=== PATIENT | female | born 1995 | race Caucasian/White ===

== ENCOUNTER 2019-01-01 11:46 | Emergency (ER) | payer SELFPAY ==
[2019-01-01] VITALS (7 sets, daily range): BP systolic 101–129; BP diastolic 61–78; PULSE 68–119; RESP 16–25; TEMP 36.6; O2SAT 99–100; BMI 20.5
--- NOTE | 2019-01-01 11:48 | CT_ITS ---
STUDY: CT CHEST WITHOUT CONTRAST REASON FOR EXAM: Female, 23 years old. SWALLOWED FISH BONE 4 DAYS AGO FEELS LIKE STUCK IN THROAT AROUND STERNAL NOTCH. RADIATION DOSAGE (If Supplied By Facility): CTDIvol = ( 6.37 ) mGy, DLP = ( 262.53 ) mGycm TECHNIQUE: Transaxial imaging was performed without the administration of intravenous contrast material. Individualized dose optimization techniques were used for this CT. COMPARISON: None. FINDINGS: The lungs are normal. There is no demonstrated pleural abnormality. Normal heart and pericardium. Normal mediastinum. Normal hilar regions. Normal unenhanced pulmonary arteries. Normal aorta arch and descending thoracic aorta. Normal osseous structures. There is no demonstrated abnormality of the visualized upper abdomen. CT/Chest without Contrast IMPRESSION: Normal unenhanced CT Chest examination. Electronically Signed: Suri Ceron MD at 12:16 EDT Tel , Service support ,
--- NOTE | 2019-01-01 12:36 | PCM.CONS.GEN ---
Reason for Consult Date of Consultation: 01/01/19 Reason for Consultation: possible esophageal foreign body History of Present Illness: The patient is a 23 year old F with a sensation of a foreign body in her esophagus. She was eating fish Thursday evening when she felt the sensation of a fish bone in her upper throat. She has been able to eat since that time but still has the sensation. She was seen in urgent care and sent to ENT. No abnormalities were found and Dr. Butler contacted me. I recommended she be referred to the ER for possible esophageal foreign body. CT scan was obtained which demonstrated no obvious abnormalities. the patient has not had any previous upper GI complaints or issues. She has no history of dysphagia or food being stuck in the past. She has no history of peptic ulcer disease or other abdominal complaints. She generally has a negative past medical history Past Medical History Allergies No Known Allergies Allergy (Verified 01/01/19 11:47) Home Medications: Ambulatory Orders Medication Instructions Recorded Calcium Carb/D3/Magnesium/Zinc 1 each PO DAILY 01/01/19 [Eavrqbm-Ujn-Uegt-Vit D Tablet] Cholecalciferol (Vitamin D3) 5,000 unit PO DAILY 01/01/19 [Vitamin D3] Fexofenadine HCl [Trish Allergy] 60 mg PO DAILY 01/01/19 Parsley/Garlic [Garlic & Parsley 1 each PO DAILY 01/01/19 Tablet] RX: Vitamin B Complex 1 each PO DAILY 01/01/19 Smoking Status: Never smoker Review of Systems Constitutional: Denies: Chills, Fever, Weight Change HEENT: Denies: Head Aches, Sinus Congestion, Sinus Drainage Cardiovascular: Denies: Chest Pain, Palpitations Respiratory: Denies: Cough, Shortness of breath at rest, Sputum production Gastrointestinal: Denies: Abdominal Pain, Nausea, Vomiting Genitourinary: Denies: Dysuria Musculoskeletal: Denies: Joint Pain, Joint Tenderness Skin: Denies: Rash, Wounds Neurological: Denies: Numbness, Tingling, Focal weakness Psychiatric: Denies: Anxiety, Depression, Homicidal Ideations, Suicidal Ideations Hematologic/ Lymphatic: Denies: Easy Bruising, Easy Bleeding - Physical Exam General: Alert, Oriented x3, Cooperative Lungs: Clear to auscultation, Normal air movement Cardiovascular: Regular rate, No murmurs Abdomen: Bowel Sounds Present, Soft, Non Tender Vital Signs Temp Pulse Resp BP Pulse Ox 97.8 F 99 16 124/73 H 100 01/01/19 11:50 01/01/19 11:50 01/01/19 11:50 01/01/19 11:50 01/01/19 11:50 Oxygen Delivery Method Room Air Weight: 47.627 kg Body Mass Index (BMI) 20.5 Assessment/Plan suspected esophageal foreign body-no esophageal foreign body found The patient underwent upper endoscopy. This demonstrated no specific abnormalities in the stomach or esophagus related to a foreign body. There was a small polyp along the greater curve of the stomach which was removed and sent to pathology. There were no signs of irritation from a previous foreign body/fish bone. 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 She is instructed to contact my office in follow-up in 2 weeks.
--- NOTE | 2019-01-01 12:46 | CON.PCM_ITS ---
Reason for Consult Date of Consultation: 01/01/19 Reason for Consultation: possible esophageal foreign body History of Present Illness: The patient is a 23 year old F with a sensation of a foreign body in her esophagus. She was eating fish Thursday evening when she felt the sensation of a fish bone in her upper throat. She has been able to eat since that time but still has the sensation. She was seen in urgent care and sent to ENT. No abnormalities were found and Dr. Butler contacted me. I recommended she be referred to the ER for possible esophageal foreign body. CT scan was obtained which demonstrated no obvious abnormalities. the patient has not had any previous upper GI complaints or issues. She has no history of dysphagia or food being stuck in the past. She has no history of peptic ulcer disease or other abdominal complaints. She generally has a negative past medical history Past Medical History Allergies No Known Allergies Allergy (Verified 01/01/19 11:47) Home Medications: Ambulatory Orders Medication Instructions Recorded Calcium Carb/D3/Magnesium/Zinc 1 each PO DAILY 01/01/19 [Ohzbkds-Toc-Tokn-Vit D Tablet] Cholecalciferol (Vitamin D3) 5,000 unit PO DAILY 01/01/19 [Vitamin D3] Fexofenadine HCl [Trish Allergy] 60 mg PO DAILY 01/01/19 Parsley/Garlic [Garlic & Parsley 1 each PO DAILY 01/01/19 Tablet] RX: Vitamin B Complex 1 each PO DAILY 01/01/19 Smoking Status: Never smoker Review of Systems Constitutional: Denies: Chills, Fever, Weight Change HEENT: Denies: Head Aches, Sinus Congestion, Sinus Drainage Cardiovascular: Denies: Chest Pain, Palpitations Respiratory: Denies: Cough, Shortness of breath at rest, Sputum production Gastrointestinal: Denies: Abdominal Pain, Nausea, Vomiting Genitourinary: Denies: Dysuria Musculoskeletal: Denies: Joint Pain, Joint Tenderness Skin: Denies: Rash, Wounds Neurological: Denies: Numbness, Tingling, Focal weakness Psychiatric: Denies: Anxiety, Depression, Homicidal Ideations, Suicidal Ideations Hematologic/ Lymphatic: Denies: Easy Bruising, Easy Bleeding - Physical Exam General: Alert, Oriented x3, Cooperative Lungs: Clear to auscultation, Normal air movement Cardiovascular: Regular rate, No murmurs Abdomen: Bowel Sounds Present, Soft, Non Tender Vital Signs Temp Pulse Resp BP Pulse Ox 97.8 F 99 16 124/73 H 100 01/01/19 11:50 01/01/19 11:50 01/01/19 11:50 01/01/19 11:50 01/01/19 11:50 Oxygen Delivery Method Room Air Weight: 47.627 kg Body Mass Index (BMI) 20.5 Assessment/Plan suspected esophageal foreign body-no esophageal foreign body found The patient underwent upper endoscopy. This demonstrated no specific abnormalities in the stomach or esophagus related to a foreign body. There was a small polyp along the greater curve of the stomach which was removed and sent to pathology. There were no signs of irritation from a previous foreign body/fish bone. 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 She is instructed to contact my office in follow-up in 2 weeks.
--- NOTE | 2019-01-01 13:05 | EGD_PTH ---
PATIENT: TONG BROWN LOC: ED U#:[id number] AGE/SX: 23/F ROOM: RE01/01/[address]: Dr. Korey Kapadia DO : 1995 BED: DIS: 01/01/2019 SPEC #: [id number] RECD: 01/01/19 14:35 STATUS: QIANA BRODERICK #: [id number] [place]: 01/01/19 13:[address]: Benedicto Brock DEPT: SURGICAL PATHOLOGY RECD BY: Brooke Kurtz ENTERED: 01/03/19 10:37 SP TYPE: EGD BIOPSY OT DR: DO Tegan Escobedo, SWIMMING INSTRUCTOR- Tissues: Gastric mucous membrane Procedures: Surgery Specimen Level IV HEADER OPERATION: EGD ([facility] [place]) PRE-OP DIAGNOSIS: Removal of food obstruction TISSUE SUBMITTED: Biopsy gastric polyp MICROSCOPIC DIAGNOSIS Gastric polyp, biopsy: Consistent with fundic gland polyp. SJ:mayank 01/04/19 MICROSCOPIC DESCRIPTION Slides are reviewed. GROSS DESCRIPTION Received is one container labeled with the patient's name and not further designated. The specimen consists of one irregular fragment of light ramirez soft tissue that measures 0.3 x 0.3 x 0.1 cm. The specimen is totally submitted in one cassette. / KAYLEIGH:mayank 01/03/19 TC:5 CPT: 17616
[2019-01-01] MEDS: Propofol 200 MG/20 ML Vial IV BOLUS (13:19)
--- NOTE | 2019-01-01 13:20 | ED.VISSUMM ---
- ER Visit Summary Date of Service: 01/01/19 Chief Complaint: Possible esophageal foreign body History of Present Illness: The patient is a 23 F who ate some tilapia 2-1/2 days ago. She felt discomfort in the left side of her neck later more inferiorly. The sensation has continued. She went to ENT today negative pharyngeal scope by Dr. Butler. She was sent to the emergency department for further evaluation. No fevers. No chest pains. No significant medical history. Physical Examination: Afebrile vital signs are stable Gen: Well-nourished well-developed Head: Normocephalic atraumatic Eyes: Perrl EOMI ENT: TMs clear no rhinorrhea moist mucous membranes no difficulty handling secretions Neck: Supple no lymphadenopathy no JVD nontender CVS: Regular rate rhythm no murmurs normal S1-S2 no crepitus auscultated are felt Respiratory: No distress clear to auscultation bilaterally chest nontender Abdomen: Soft nontender nondistended normal bowel sounds no masses Back: Nontender Extremity: Nontender no edema Skin: Normal color no rash Neuro: alert orientated ?3 CN II-XII intact normal strength sensation reflexes gait cerebellar Psych: Normal affect normal mood Test Results: CT of the chest was obtained to rule out obvious perforation or mediastinitis/air. This was negative. Emergency Department Course and Treatment: Patient provided informed consent for the use of propofol for procedural sedation for EGD. Patient received 1 mg/kg bolus followed by 0.5 mg/kg aliquots until adequate sedation was achieved and maintained during the EGD. Patient had no evidence of hypoxia, hypoventilation, or hypotension during the procedure. She was allowed to recover without difficulty. Please see Dr. Estrada's note for the EGD findings. In short no foreign body was seen. After recovery the patient will be allowed to be discharged home. Impression: 1. Dysphagia 2. Procedural sedation by physician This note was generated with [employer] dictation software. It may contain incorrect words, spelling, and punctuation that were not noted in review of the chart prior to signing ED Disposition - Plan for ED Patient: Disposition: Home or Assisted Living Instructions: ED Sedation Procedural Discon Referrals: Benedicto Brock MD [STAFF PHYSICIAN] - (in 2 weeks)
--- NOTE | 2019-02-08 13:18 | OP.ENDO_ITS ---
02/08/2019 Tegan Menon Re : Upper GI endoscopy procedure for Odalis Lua Lynsey This procedure was performed on Tuesday, January 01, 2019. My impressions and recommendations are as follows: Impressions : - A single gastric polyp. Resected and retrieved. - Normal esophagus. - Normal hypopharynx. Recommendations : - Return to my office in 2 weeks. - Continue present medications. My findings are described in the full procedure note, which is enclosed. If I can be of further assistance, please feel free to contact me at Doctor phone number(s): , Work: . Sincerely, Benedicto Brock MD 02/08/2019 1:18:27 PM This report has been signed electronically.
== END 2019-01-01 14:03 | disposition home or self-care (01) ==
PROVIDERS: Surgery; Emergency Provider Emergency Medicine; Family Provider Nurse Practitioner Adult Health; PCP Nurse Practitioner Adult Health
PROC: 0DJ08ZZ Inspection of Upper Intestinal Tract, Via Natural or Artificial Opening Endoscopic (ICD-10-PCS; CPT 43235; principal; 2019-01-01 13:00)
DX: K31.7 Polyp of stomach and duodenum (principal); R13.10 Dysphagia, unspecified
CPT/HCPCS: 43239; 71250; 88305; 99284; A4216